=== PATIENT | female | born 1975 | race Caucasian/White ===

== ENCOUNTER 2016-11-19 17:43 | Observation (INO) | payer MEDICAID ==
[~2016-11-19] VITALS: Ht 162.6 cm; Wt 88.2 kg
[2016-11-19] MEDS ORDERED: SODIUM CHLORIDE 0.9% 1,000 ML IV ONE ×2 (17:58→20:23)
[2016-11-19] MEDS ORDERED: FAMOTIDINE 20 MG/2 ML IVP ONE (18:00)
[2016-11-19] MEDS ORDERED: MAALOX/HYOSCYAMINE/LIDOCAINE 45 ML BOTTLE PO ONE (18:00)
[2016-11-19] MEDS ORDERED: ONDANSETRON 2MG/ML, 2ML IVPush ONE ×2 (18:00→20:00)
[2016-11-19] MEDS ORDERED: SODIUM CHLORIDE 0.9% 1,000ML IVBOLUS ONE ×2 (18:00→20:30)
[2016-11-19] MEDS ORDERED: PLEASE ENTER ALLERGIES MC SCH ×2 (18:30)
[2016-11-19] MEDS ORDERED: MAALOX/HYOSCYAMINE/LIDOCAINE 45 ML BOTTLE ONE (18:42)
[2016-11-19] MEDS ORDERED: FAMOTIDINE 20 MG/2 ML ONE (18:42)
[2016-11-19] MEDS ORDERED: ONDANSETRON 2MG/ML, 2ML ONE ×2 (18:42→19:49)
[2016-11-19 18:43] LABS: DAU SCREEN DISCLAIMER
[2016-11-19 18:51] LABS: ASPARTATE AMINO TRANSFERASE 20 U/L (15-37); BLOOD UREA NITROGEN 17 mg/dL (7-18)
[2016-11-19 18:54] LABS: ACETAMINOPHEN < 2 mcg/mL (10-30)
[2016-11-20] MEDS ORDERED: DOCUSATE 100 MG CAPSULE PO PRN (02:00)
[2016-11-20 02:32] VITALS: BP 136/92
[2016-11-20] MEDS: ONDANSETRON ODT 4 MG PO PRN ×2 (05:28→20:33)
[2016-11-20 05:34] VITALS: BP 144/100
[2016-11-20] MEDS ORDERED: LORazepam 1MG TABLET PO PRN (06:00)
[2016-11-20] MEDS ORDERED: LORazepam 2 MG/ML, 1ML IVPush PRN (06:00)
[2016-11-20 07:09] LABS: ASPARTATE AMINO TRANSFERASE 22 U/L (15-37); BLOOD UREA NITROGEN 16 mg/dL (7-18)
[2016-11-20 08:56] VITALS: BP 144/77
[2016-11-20] MEDS: LORazepam 2 MG/ML, 1ML IVPush PRN ×2 (08:58→19:03)
[2016-11-20] MEDS: MULTIVITAMIN 1 TABLET PO SCH (08:58)
[2016-11-20] MEDS: ENOXAPARIN 40 MG/0.4 ML SQ SCH (08:58)
[2016-11-20] MEDS: THIAMINE 100MG TABLET PO SCH (08:58)
[2016-11-20] MEDS: POTASSIUM CHLORIDE 20 MEQ, MAGNESIUM SULFATE 1 GM, FOLIC ACID 1 MG, THIAMINE 100 MG, MV... IV SCH (10:56)
[2016-11-20 14:00] VITALS: BP 136/87
[2016-11-20 20:01] VITALS: BP 121/82
[2016-11-20] MEDS ORDERED: KETOROLAC 30 MG/1 ML IVPush ONE (20:30)
[2016-11-20] MEDS: DIPHENHYDRAMINE 50 MG CAPSULE PO PRN (22:12)
[2016-11-21] MEDS: LORazepam 2 MG/ML, 1ML IVPush PRN ×4 (00:52→21:38)
[2016-11-21 02:00] VITALS: BP 129/85
[2016-11-21 06:29] LABS: ASPARTATE AMINO TRANSFERASE 22 U/L (15-37); BLOOD UREA NITROGEN 15 mg/dL (7-18)
[2016-11-21 08:07] VITALS: BP 122/78
[2016-11-21] MEDS ORDERED: NS + 40MEQ KCL 1,000 ML IV SCH (09:30)
[2016-11-21] MEDS: ENOXAPARIN 40 MG/0.4 ML SQ SCH (10:22)
[2016-11-21] MEDS: MULTIVITAMIN 1 TABLET PO SCH (10:22)
[2016-11-21] MEDS: THIAMINE 100MG TABLET PO SCH (10:22)
[2016-11-21 13:41] VITALS: BP 124/82
[2016-11-21 19:12] VITALS: BP 136/87
[2016-11-21] MEDS: POTASSIUM CHLORIDE 20 MEQ, MAGNESIUM SULFATE 1 GM, FOLIC ACID 1 MG, THIAMINE 100 MG, MV... IV SCH (20:38)
[2016-11-21] MEDS ORDERED: ACETAMINOPHEN 325 MG TABLET PO ONE (21:30)
[2016-11-21] MEDS: ONDANSETRON ODT 4 MG PO PRN (21:38)
[2016-11-22 01:25] VITALS: BP 116/77
[2016-11-22] MEDS: LORazepam 2 MG/ML, 1ML IVPush PRN ×3 (02:34→13:00)
[2016-11-22 07:36] VITALS: BP 117/77
[2016-11-22] MEDS: THIAMINE 100MG TABLET PO SCH (08:14)
[2016-11-22] MEDS: ENOXAPARIN 40 MG/0.4 ML SQ SCH (08:14)
[2016-11-22] MEDS: MULTIVITAMIN 1 TABLET PO SCH (08:14)
[2016-11-22 13:57] VITALS: BP 125/87
[2016-11-22] MEDS: ACETAMINOPHEN 325 MG TABLET PO PRN (16:15)
[2016-11-22] MEDS ORDERED: LORazepam 1MG TABLET ONE (17:58)
[2016-11-22 18:32] VITALS: BP 132/88
[2016-11-22 20:05] VITALS: BP 150/128
[2016-11-22 20:10] VITALS: BP 125/91
[2016-11-23] MEDS: DIPHENHYDRAMINE 50 MG CAPSULE PO PRN ×2 (00:13→03:05)
[2016-11-23] MEDS: ACETAMINOPHEN 325 MG TABLET PO PRN ×2 (00:14→07:24)
[2016-11-23 07:51] VITALS: BP 123/88
[2016-11-23] MEDS: ENOXAPARIN 40 MG/0.4 ML SQ SCH (08:00)
[2016-11-23] MEDS: THIAMINE 100MG TABLET PO SCH (09:09)
[2016-11-23] MEDS: MULTIVITAMIN 1 TABLET PO SCH (09:09)
[2016-11-23] MEDS ORDERED: DIVA500T2 PO (17:20)
[2016-11-23] MEDS ORDERED: HYDR-3342 PO (17:20)
[2016-11-23] MEDS ORDERED: GABA600T2 PO (17:21)
[2016-11-23] MEDS ORDERED: OLAN2.5T5 PO (17:22)
[2016-11-23] MEDS ORDERED: PROP10TA PO (17:23)
[2016-11-23] MEDS ORDERED: TRAZ100T15 PO (17:24)
[2016-11-23] MEDS ORDERED: RISP1TAB45 PO (17:24)
[2016-11-23 19:46] VITALS: BP 134/70
[2016-11-23] MEDS: RISPERIDONE 0.5 MG TABLET PO ONE (20:30)
[2016-11-23] MEDS ORDERED: GABAPENTIN 300 MG CAPSULE PO ONE (20:30)
[2016-11-23] MEDS ORDERED: PROPRANOLOL 60 MG CAP.SA.24H PO ONE (20:30)
[2016-11-23] MEDS ORDERED: TRAZODONE 50MG TABLET PO ONE (20:30)
[2016-11-23] MEDS ORDERED: OLANZAPINE 2.5 MG TABLET PO ONE (20:30)
[2016-11-23] MEDS ORDERED: DIVALPROEX 500 MG TAB.ER.24H PO ONE (20:30)
[2016-11-24 05:55] LABS: BLOOD UREA NITROGEN 14 mg/dL (7-18)
[2016-11-24 08:03] VITALS: BP 118/97
[2016-11-24] MEDS: DIVALPROEX 500 MG TABLET.DR PO SCH ×3 (08:22→20:26)
[2016-11-24] MEDS: PROPRANOLOL 10 MG TABLET PO SCH ×2 (08:23→20:26)
[2016-11-24] MEDS: GABAPENTIN 400 MG CAPSULE PO SCH ×3 (08:23→20:27)
[2016-11-24] MEDS: THIAMINE 100MG TABLET PO SCH (08:24)
[2016-11-24] MEDS: MULTIVITAMIN 1 TABLET PO SCH (08:24)
[2016-11-24] MEDS ORDERED: RISPERIDONE 1 MG TABLET PO SCH (09:00)
[2016-11-24] MEDS: ENOXAPARIN 40 MG/0.4 ML SQ SCH (09:46)
[2016-11-24 20:00] VITALS: BP 105/69
[2016-11-24] MEDS: ACETAMINOPHEN 325 MG TABLET PO PRN (20:26)
[2016-11-24] MEDS: OLANZAPINE 2.5 MG TABLET PO SCH (20:27)
[2016-11-24] MEDS ORDERED: TRAZODONE 50MG TABLET ONE (22:50)
[2016-11-24] MEDS: TRAZODONE 100MG TABLET PO PRN (22:52)
[2016-11-25] MEDS: ACETAMINOPHEN 325 MG TABLET PO PRN ×2 (06:44→15:45)
[2016-11-25 07:42] VITALS: BP 108/75
[2016-11-25] MEDS: THIAMINE 100MG TABLET PO SCH (09:13)
[2016-11-25] MEDS: MULTIVITAMIN 1 TABLET PO SCH (09:13)
[2016-11-25] MEDS: GABAPENTIN 400 MG CAPSULE PO SCH ×3 (09:14→21:00)
[2016-11-25] MEDS: PROPRANOLOL 10 MG TABLET PO SCH ×2 (09:14→21:00)
[2016-11-25] MEDS: ENOXAPARIN 40 MG/0.4 ML SQ SCH (09:14)
[2016-11-25] MEDS: DIVALPROEX 500 MG TABLET.DR PO SCH ×3 (09:14→21:10)
[2016-11-25 19:25] VITALS: BP 99/68
[2016-11-25] MEDS: OLANZAPINE 2.5 MG TABLET PO SCH (21:11)
[2016-11-25] MEDS ORDERED: TRAZODONE 50MG TABLET ONE (22:02)
[2016-11-25] MEDS: TRAZODONE 100MG TABLET PO PRN (22:03)
[2016-11-26 07:38] VITALS: BP 107/73
[2016-11-26] MEDS: PROPRANOLOL 10 MG TABLET PO SCH (09:00)
[2016-11-26] MEDS: GABAPENTIN 400 MG CAPSULE PO SCH ×2 (09:00→16:00)
[2016-11-26] MEDS: DIVALPROEX 500 MG TABLET.DR PO SCH ×2 (09:00→16:00)
[2016-11-26] MEDS: MULTIVITAMIN 1 TABLET PO SCH (09:00)
[2016-11-26] MEDS ORDERED: ENOXAPARIN 40 MG/0.4 ML SQ SCH (09:00)
[2016-11-26] MEDS: THIAMINE 100MG TABLET PO SCH (09:00)
[2016-11-26] MEDS: ACETAMINOPHEN 325 MG TABLET PO PRN (10:58)
== END 2016-11-26 16:50 | disposition home or self-care (01) ==
LOC: ED 21:57 → EDIP 11-20 00:51 → INTOOBSV 11-20 00:51 → 3E 11-20 02:27 → 4EST 11-20 07:49 → 4WST 11-22 08:37 → 3E 11-22 18:09
PROVIDERS: ADMIT Internal Medicine; ATTEND Internal Medicine
DX: R45.851 Suicidal ideations (principal); K29.20 Alcoholic gastritis without bleeding; I10 Essential (primary) hypertension; F31.9 Bipolar disorder, unspecified; F41.9 Anxiety disorder, unspecified; E87.6 Hypokalemia; F10.10 Alcohol abuse, uncomplicated; E87.2 Acidosis; Z87.891 Personal history of nicotine dependence; Z90.49 Acquired absence of other specified parts of digestive tract
CPT/HCPCS: 36415; 71010; 76700; 80048; 80053; 80307; 80329; 81003; 83605; 83690; 84703; 85025; 85610; 93005; 96361; 96365; 96366; 96367; 96372; 96375; 96376; 99285; G0378; J1650; J1885; J2060; J2405; J3411; J3475; J3480; J7030; Q0162; Q0177; J7042; G0480; S0028

== ENCOUNTER 2017-01-12 17:11 | Emergency (ER) | payer MEDICAID ==
[~2017-01-12] VITALS: Ht 162.6 cm; Wt 75.0 kg
[~2017-01-12 17:11] MED LIST: DIVA500T2 PO; GABA600T2 PO; HYDR-3342 PO; HYDR25TA11 PO; OLAN2.5T5 PO; PROP10TA PO; RISP1TAB45 PO; TRAZ100T15 PO
[2017-01-12 17:42] LABS: DAU SCREEN DISCLAIMER
[2017-01-12] MEDS ORDERED: LURA60TA PO (17:44)
[2017-01-12] MEDS ORDERED: BUSP10TA PO (17:44)
[2017-01-12] MEDS ORDERED: RANI150T4 PO (17:44)
[2017-01-12 17:51] LABS: ASPARTATE AMINO TRANSFERASE 24 U/L (15-37); BLOOD UREA NITROGEN 17 mg/dL (7-18)
[2017-01-12 17:55] LABS: ACETAMINOPHEN < 2 mcg/mL (10-30)
[2017-01-12] MEDS ORDERED: ONDANSETRON ODT 4 MG ONE (21:29)
[2017-01-12] MEDS ORDERED: FAMOTIDINE 20 MG TABLET ONE (21:29)
[2017-01-12] MEDS ORDERED: ONDANSETRON ODT 4 MG PO ONE (21:30)
[2017-01-12] MEDS ORDERED: FAMOTIDINE 20 MG TABLET PO ONE (21:30)
[2017-01-13 02:41] VITALS: BP 142/89
== END 2017-01-13 02:42 | disposition home or self-care (01) ==
LOC: ED 17:14
DX: F10.229 Alcohol dependence with intoxication, unspecified (principal); F32.9 Major depressive disorder, single episode, unspecified
CPT/HCPCS: 36415; 80053; 80307; 80329; 85025; 99284; Q0162; G0480

== ENCOUNTER 2017-12-23 16:27 | Emergency (ER) | payer MEDICAID ==
[~2017-12-23] VITALS: Ht 162.6 cm; Wt 68.0 kg
[~2017-12-23 16:27] MED LIST changes: +BUSP10TA PO; +LURA60TA PO; +OLAN2.5T10 PO; -OLAN2.5T5 PO; +RANI150T4 PO
[2017-12-23] MEDS ORDERED: LORazepam 1MG TABLET PO ONE (17:00)
[2017-12-23 17:20] LABS: BASOPHILS # (AUTO) 0.04 x10^3/uL (0-0.1); BASOPHILS % (AUTO) 1 % (0-1); EOSINOPHILS # (AUTO) 0.16 x10^3/uL (0-0.4); EOSINOPHILS % (AUTO) 2 % (1-7); LYMPHOCYTES # (AUTO) 1.44 x10^3/uL (1-3.4); LYMPHOCYTES % (AUTO) 18 % (22-44); MD NO; MEAN CORPUSCULAR HEMOGLOBIN 31.8 pg (27.0-34.8); MEAN CORPUSCULAR HGB CONC 34.2 g/dL (32.4-35.8); MEAN CORPUSCULAR VOLUME 92.8 fL (80-100); MEAN PLATELET VOLUME 7.3 fL (7.4-10.4); MONOCYTES # (AUTO) 0.65 x10^3/uL (0.2-0.8); MONOCYTES % (AUTO) 8 % (2-9); NEUTROPHILS # (AUTO) 5.56 x10^3/uL (1.8-6.8); NEUTROPHILS % (AUTO) 71 % (42-75); PLATELET COUNT 278 x10^3/uL (130-400); RED BLOOD COUNT 4.16 x10^6/uL (3.82-5.3); RED CELL DISTRIBUTION WIDTH 15.3 % (9.6-15.2)
[2017-12-23] MEDS ORDERED: LORazepam 1MG TABLET ONE (17:21)
[2017-12-23 17:29] LABS: ALANINE AMINOTRANSFERASE 19 U/L (12-78); ALBUMIN 3.3 g/dL (3.4-5.0); ANION GAP 6 mmol/L (5-15); CALCIUM 8.5 mg/dL (8.5-10.1); CHLORIDE 107 mmol/L (98-107); CREATININE 0.91 mg/dL (0.55-1.02)
[2017-12-23 17:30] LABS: BILIRUBIN, DIRECT < 0.1 mg/dL (0.1-0.2)
[2017-12-23 17:34] LABS: ALKALINE PHOSPHATASE 99 U/L (45-117); BILIRUBIN,TOTAL 0.1 mg/dL (0.2-1.0); CREATINE KINASE, TOTAL 46 U/L (26-192); TOTAL PROTEIN 6.6 g/dL (6.4-8.2)
[2017-12-23 18:33] VITALS: BP 128/74
== END 2017-12-23 18:36 | disposition home or self-care (01) ==
LOC: ED 17:50
DX: F41.1 Generalized anxiety disorder (principal); I10 Essential (primary) hypertension; F32.9 Major depressive disorder, single episode, unspecified; Z88.8 Allergy status to other drugs, medicaments and biological substances
CPT/HCPCS: 36415; 80048; 80076; 82040; 82550; 84703; 85025; 93005; 99285

== ENCOUNTER 2018-07-08 20:18 | Emergency (ER) | payer MEDICAID ==
[~2018-07-08] VITALS: Ht 162.6 cm; Wt 68.3 kg
[~2018-07-08 20:18] MED LIST changes: +TRAZ-137 PO; -TRAZ100T15 PO
--- NOTE | 2018-07-08 20:30 | NUR ---
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 ORAL GLUCOSE WAS GIVEN BY [facility].
[2018-07-08 20:55] VITALS: BP 118/72
--- NOTE | 2018-07-08 21:00 | NUR ---
PT BIB [facility] AFTER PT CALLED FOR DETOX FROM ALCOHOL. CHART UP FOR .
[2018-07-08] MEDS ORDERED: LORazepam 1MG TABLET ONE (21:26)
[2018-07-08] MEDS ORDERED: PROMETHAZINE 25 MG/ML, 1ML IM ONE (21:30)
[2018-07-08] MEDS ORDERED: LORazepam 1MG TABLET PO ONE (21:30)
[2018-07-08 21:37] LABS: BASOPHILS # (AUTO) 0.02 x10^3/uL (0-0.1); BASOPHILS % (AUTO) 0 % (0-1); EOSINOPHILS # (AUTO) 0.05 x10^3/uL (0-0.4); EOSINOPHILS % (AUTO) 1 % (1-7); LYMPHOCYTES # (AUTO) 1.63 x10^3/uL (1-3.4); LYMPHOCYTES % (AUTO) 22 % (22-44); MD NO; MEAN CORPUSCULAR HEMOGLOBIN 32.3 pg (27.0-34.8); MEAN CORPUSCULAR HGB CONC 34.2 g/dL (32.4-35.8); MEAN CORPUSCULAR VOLUME 94.4 fL (80-100); MEAN PLATELET VOLUME 7.7 fL (7.4-10.4); MONOCYTES # (AUTO) 0.42 x10^3/uL (0.2-0.8); MONOCYTES % (AUTO) 6 % (2-9); NEUTROPHILS # (AUTO) 5.25 x10^3/uL (1.8-6.8); NEUTROPHILS % (AUTO) 71 % (42-75); PLATELET COUNT 317 x10^3/uL (130-400); RED BLOOD COUNT 4.79 x10^6/uL (3.82-5.3); RED CELL DISTRIBUTION WIDTH 15.9 % (9.6-15.2)
[2018-07-08 21:43] LABS: ALANINE AMINOTRANSFERASE 13 U/L (12-78); ALBUMIN 4.1 g/dL (3.4-5.0); ANION GAP 12 mmol/L (5-15); CALCIUM 8.7 mg/dL (8.5-10.1); CHLORIDE 106 mmol/L (98-107); CREATININE 0.94 mg/dL (0.55-1.02)
[2018-07-08 21:48] LABS: ALKALINE PHOSPHATASE 79 U/L (45-117); BILIRUBIN,TOTAL 0.3 mg/dL (0.2-1.0); TOTAL PROTEIN 8.1 g/dL (6.4-8.2)
--- NOTE | 2018-07-08 21:50 | NUR ---
REPORT TO MAGDA SARGENT AT BEDSIDE.
[2018-07-08] MEDS ORDERED: PROMETHAZINE 25 MG/ML, 1ML ONE (21:54)
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
--- NOTE | 2018-07-08 23:02 | NUR ---
pt resting in bed.
--- NOTE | 2018-07-08 23:36 | NUR ---
PT RESTING IN BED. PT ALERT WHEN WOKEN UP TO VERBAL STIMULI
--- NOTE | 2018-07-09 00:53 | NUR ---
REPORT GIVEN TO ANNI SARGENT
== END 2018-07-09 01:36 | disposition home or self-care (01) ==
LOC: ED 07-09 01:29
DX: F10.220 Alcohol dependence with intoxication, uncomplicated (principal); F41.1 Generalized anxiety disorder; I10 Essential (primary) hypertension; Z72.9 Problem related to lifestyle, unspecified; Z87.19 Personal history of other diseases of the digestive system; Y90.9 Presence of alcohol in blood, level not specified
CPT/HCPCS: 36415; 80053; 83690; 84703; 85025; 96372; 99283; J2550

== ENCOUNTER 2018-09-28 16:48 | Emergency (ER) | payer MEDICAID ==
[~2018-09-28] VITALS: Ht 162.6 cm; Wt 67.0 kg
[~2018-09-28 16:48] MED LIST changes: -GABA600T2 PO; +GABA600T7 PO; -PROP10TA PO; +PROP10TA16 PO
--- NOTE | 2018-09-28 16:52 | NUR ---
43 YR OLD FEMALE ARRIVED VIA POV WITH . "SHE HAD A SEIZURE" UPON ARRIVAL PT WITH SNORING RESP, UNRESPONSIVE. PT BEGAN HAVING SEIZURES APPROX 2 MONTHS AGO. PT HAD BEEN ON MEDS, STOPPED TAKING "MAYBE A MONTH AGO" PT CURRENTLY AWAKE, ANSWERING QUESTIONS. UNABLE TO STATE THE YEAR. STATES PLACE "[place]"
--- NOTE | 2018-09-28 17:08 | NUR ---
REPORT TO MAEGAN SARGENT
--- NOTE | 2018-09-28 17:15 | NUR ---
PT. REMAINS MONITORED. PT. IS ABLE TO STATE PLACE, PERSON AND SELF. PT. STATES HER LAST DRINK WAS IN JULY. PT. HAS SEIZURE PRECAUTIONS MAINTAINED. PT. WAS INSTRUCTED TO NOT GET UP WITHOUT ASKING FOR HELP. PT. VERBALIZED UNDERSTANDING AND WILLINGNESS TO COMPLY.
--- NOTE | 2018-09-28 17:29 | NUR ---
NO CHANGES AT THIS TIME. PT. REMAINS MONITORED. HOB IS ELEVATED GREATER THAN 30 DEGREES. SIDERAILS REMAIN UP X 2 WITH THE CALL LIGHT IN PLACE. SEIZURE PRECAUTIONS MAINTAINED.
[2018-09-28 18:16] LABS: BASOPHILS # (AUTO) 0.02 x10^3/uL (0-0.1); BASOPHILS % (AUTO) 1 % (0-1); EOSINOPHILS # (AUTO) 0.05 x10^3/uL (0-0.4); EOSINOPHILS % (AUTO) 1 % (1-7); LYMPHOCYTES # (AUTO) 1.08 x10^3/uL (1-3.4); LYMPHOCYTES % (AUTO) 24 % (22-44); MD NO; MEAN CORPUSCULAR HEMOGLOBIN 33.4 pg (27.0-34.8); MEAN CORPUSCULAR HGB CONC 34.4 g/dL (32.4-35.8); MEAN CORPUSCULAR VOLUME 97.3 fL (80-100); MEAN PLATELET VOLUME 7.7 fL (7.4-10.4); MONOCYTES # (AUTO) 0.34 x10^3/uL (0.2-0.8); MONOCYTES % (AUTO) 8 % (2-9); NEUTROPHILS # (AUTO) 3.11 x10^3/uL (1.8-6.8); NEUTROPHILS % (AUTO) 68 % (42-75); PLATELET COUNT 274 x10^3/uL (130-400); RED BLOOD COUNT 3.83 x10^6/uL (3.82-5.3)
[2018-09-28 18:22] LABS: ALBUMIN 3.4 g/dL (3.4-5.0); ANION GAP 4 mmol/L (5-15); CALCIUM 8.4 mg/dL (8.5-10.1); CHLORIDE 103 mmol/L (98-107); CREATININE 0.88 mg/dL (0.55-1.02)
[2018-09-28] MEDS ORDERED: LEVETIRACETAM 500 MG TABLET PO ONE (19:00)
[2018-09-28] MEDS ORDERED: LEVETIRACETAM 500 MG TABLET ONE (19:12)
[2018-09-28 19:13] VITALS: BP 116/63
--- NOTE | 2018-09-28 19:14 | NUR ---
PT. REMAINS MONITORED, VSS. PT.'S SEIZURE PRECAUTIONS MAINTAINED. BEDSIDE REPORT WAS GIVEN TO DOMINIK SARGENT.
--- NOTE | 2018-09-28 19:32 | NUR ---
Kamille mauricio in ED - 09/28/18 at 1933 by KALPESH Patient/Caregiver given discharge instructions and they have confirmed that they understand the instructions. Patient ambulatory with steady gait.
== END 2018-09-28 19:48 | disposition home or self-care (01) ==
LOC: ED 19:42
DX: G40.419 Other generalized epilepsy and epileptic syndromes, intractable, without status epilepticus (principal); I10 Essential (primary) hypertension; F32.9 Major depressive disorder, single episode, unspecified; Z72.9 Problem related to lifestyle, unspecified; F41.1 Generalized anxiety disorder
CPT/HCPCS: 36415; 80048; 80307; 82040; 85025; 93005; 99284

== ENCOUNTER 2019-01-02 21:02 | Emergency (ER) | payer MEDICAID ==
[~2019-01-02] VITALS: Ht 170.2 cm; Wt 66.0 kg
[2019-01-02] MEDS ORDERED: POLYTRIM OPHTH 10ML EACHEYE STA (21:10)
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
--- NOTE | 2019-01-02 21:33 | NUR ---
blood drawn by labor operator. FS 94, PA aware.
[2019-01-02 21:44] LABS: BASOPHILS # (AUTO) 0.03 x10^3/uL (0-0.1); BASOPHILS % (AUTO) 1 % (0-1); EOSINOPHILS # (AUTO) 0.09 x10^3/uL (0-0.4); EOSINOPHILS % (AUTO) 2 % (1-7); LYMPHOCYTES # (AUTO) 1.77 x10^3/uL (1-3.4); LYMPHOCYTES % (AUTO) 30 % (22-44); MD NO; MEAN CORPUSCULAR HEMOGLOBIN 33.3 pg (27.0-34.8); MEAN CORPUSCULAR HGB CONC 33.3 g/dL (32.4-35.8); MEAN PLATELET VOLUME 7.3 fL (7.4-10.4); MONOCYTES % (AUTO) 10 % (2-9); NEUTROPHILS # (AUTO) 3.49 x10^3/uL (1.8-6.8); NEUTROPHILS % (AUTO) 58 % (42-75); PLATELET COUNT 245 x10^3/uL (130-400); RED BLOOD COUNT 4.23 x10^6/uL (3.82-5.3); RED CELL DISTRIBUTION WIDTH 14.4 % (9.6-15.2)
[2019-01-02 21:53] LABS: CHLORIDE 107 mmol/L (98-107)
[2019-01-02 22:01] LABS: ALANINE AMINOTRANSFERASE 15 U/L (12-78); ALBUMIN 3.5 g/dL (3.4-5.0); ALKALINE PHOSPHATASE 84 U/L (45-117); ANION GAP 10 mmol/L (5-15); BILIRUBIN,TOTAL 0.2 mg/dL (0.2-1.0); CALCIUM 8.1 mg/dL (8.5-10.1); CREATININE 0.73 mg/dL (0.55-1.02); SALICYLATE LEVEL 2.2 mg/dL (2.8-20.0); TOTAL PROTEIN 7.3 g/dL (6.4-8.2)
--- NOTE | 2019-01-02 22:12 | NUR ---
BA 0.458, provider aware.
--- NOTE | 2019-01-02 23:32 | NUR ---
nose bleeding noted earlier. no active bleeding at this time.
--- NOTE | 2019-01-03 01:00 | NUR ---
patient sleeping, respiration unlabored. VSS
--- NOTE | 2019-01-03 01:35 | NUR ---
patient's oxygen saturation drop to high 80's on RA. placed on oxygen @ 2 liters.
--- NOTE | 2019-01-03 04:03 | NUR ---
no changes. patient sleeping, will continue to monitor.
--- NOTE | 2019-01-03 05:15 | NUR ---
no changes. patient sleeping, respiration unlabored.
--- NOTE | 2019-01-03 06:53 | NUR ---
patient awake and alert. ambulate with a steady gait. discharged with prescription and instruction. verbalized understanding.
[2019-01-03 06:54] VITALS: BP 107/78
== END 2019-01-03 06:56 | disposition home or self-care (01) ==
LOC: ED 01-03 00:29
DX: F10.220 Alcohol dependence with intoxication, uncomplicated (principal); F17.210 Nicotine dependence, cigarettes, uncomplicated
CPT/HCPCS: 36415; 80053; 80307; 82962; 84703; 85025; 99283